=== PATIENT | female | born 1965 | race African-American/Black ===

== ENCOUNTER → 2016-11-01 | Outpatient (CLI) | payer BC ==
[~2016-11-01] MED LIST: CALC500 PO; LISI-360 PO; NAPR220T95 OR; VITATAB25 OR
--- NOTE | 2016-11-01 14:07 | EKG ---
Date Performed: 11/01/2016 Time Performed: 10:56:19 PTAGE: 50 years EKG: Sinus rhythm POSSIBLE LEFT ATRIAL ENLARGEMENT NONSPECIFIC T-WAVE ABNORMALITY Since previous tracing, no significa nt change noted BORDERLINE ECG PREVIOUS TRACING : 12/09/2011 10.41 DOCTOR: Lauren Carmona Interpretating Date/Time 11/01/2016 14:04:57
== END ==
LOC: HCAV 10:38
PROVIDERS: ATTEND Optometrist Occupational Vision
DX: H25.811 Combined forms of age-related cataract, right eye (principal); R94.31 Abnormal electrocardiogram [ECG] [EKG]
CPT/HCPCS: 93005